=== PATIENT | female | born 1980 | race Caucasian/White ===

== ENCOUNTER 2016-07-17 16:03 | Emergency (ER) | payer OTHER ==
[~2016-07-17] VITALS: Ht 177.8 cm; Wt 144.7 kg
[~2016-07-17 16:03] MED LIST: BENTYL10 MG PO; BUSPIRONE HCL15 MG PO; CHOLESTYRAMINE L4 GM PO; KLONOPIN0.5 M1 PO; LEXAPRO10 MG PO; NAPROSYN500 MG PO; SERTRALINE HCL100 MG PO; XANAX0.5 MG PO; ZANTAC150 MG PO; ZOFRAN4 MG PO
[2016-07-17 16:41] LABS: MCH 27.8 PG (29.0-34.0); MCHC 31.5 G/DL (30.0-36.0); MCV 88.3 FL (83-99); MEAN PLAT.VOLUME 10.7 uM^3 (9.5-12.4); PLATELET COUNT 337 K/uL (156-360); RBC DIS.WIDTH-SD 45.1 % (39-53); RED BLOOD COUNT 4.53 M/uL (3.80-5.20); WHITE BLOOD COUNT 11.2 K/uL (4.1-10.2)
[2016-07-17 16:51] LABS: CHLORIDE 102 mEq/L (99-109); POTASSIUM 4.1 mEq/L (3.7-5.4); SODIUM 139 mEq/L (136-147)
[2016-07-17 16:53] LABS: GLUCOSE 82 mg/dL (70-99)
[2016-07-17 16:54] LABS: ANION GAP 10 MEQ/L (2-14)
[2016-07-17 16:55] LABS: TOTAL BILIRUBIN 0.2 mg/dL (0.0-1.0)
[2016-07-17 16:57] LABS: ALKALINE PHOSPHATASE 55 IU/L (3-129); GFR ESTIMATE (CALCULATED) > 59 mL/min/
[2016-07-17 16:58] LABS: UREA NITROGEN (BUN) 11 mg/dL (9-23)
[2016-07-17 17:00] LABS: LIPASE 19 U/L (1.0-51.0)
[2016-07-17 17:08] LABS: QUANTITATIVE HCG < 4.0 MIU/ML
[2016-07-17 17:23] LABS: ADD MIUA? NO; BILIRUBIN NEGATIVE; BLOOD NEGATIVE; COLOR YELLOW ((YELLOW)); GLUCOSE (STRIP) NEGATIVE; KETONES NEGATIVE; LEUKOCYTES NEGATIVE; NITRITE NEGATIVE; PROTEIN (STRIP) NEGATIVE; SPECIFIC GRAVITY 1.013 (1.000-1.030); UROBILINOGEN 0.2 MG/DL (0.2-1.0)
[2016-07-17 20:05] VITALS: BP 125/77
== END 2016-07-17 20:06 | disposition home or self-care (01) ==
LOC: EME 16:03
PROVIDERS: Nurse Practitioner Family
DX: R10.84 Generalized abdominal pain (principal); R19.7 Diarrhea, unspecified; Z87.891 Personal history of nicotine dependence; N83.201 Unspecified ovarian cyst, right side
CPT/HCPCS: 74176; 80053; 81003; 83690; 84702; 85027; 99281; 99284